=== PATIENT | male | born 1930 | race Caucasian/White ===

== ENCOUNTER 2017-03-24 15:02 | Outpatient (CLI) | payer OTHER ==
[2013-11-09 12:33] VITALS: BP 110/68
[2017-03-24 15:23] LABS: BASOPHILS % 0.6 (0.0-1.5); EOSINOPHILS % 5.1 % (0.0-6.8); MEAN CORPUSCULAR HEMOGLOBIN 34.3 pg (28.0-34.0); MEAN CORPUSCULAR VOLUME 97.6 fl (80.0-100.0); MONOCYTES % 7.1 % (0.0-11.0); NEUTROPHILS # 3.2 # k/uL (1.4-7.7)
[2017-03-24 15:54] LABS: eGFR (African) > 60; eGFR (Non-African) > 60
--- NOTE | 2017-03-24 19:14 | Diagnostic Imaging Report ---
ELIANA WHITE [facility] [address] [address] [facility] [address] [place], [place]. [address] Report Submission Date: Mar 24, 2017 3:51:30 PM CDT Patient Study Name: JEREMIAH BARRON Date: Mar 24, 2017 3:12:33 PM CDT Modality Type: CR Gender: M Description: SPINE : 34 Institution: [facility] Physician: ELIANA WHITE 3 views of the cervical spine History: Right-sided neck pain Findings: No comparison studies Bones are demineralized. There is grade I anterolisthesis of C4 on C5. Degenerative changes are seen at multiple levels of the cervical spine, these are worst at C5-6 with osteophytes, intervertebral disc space narrowing, with slight decrease in vertebral body height No prevertebral swelling, no obvious acute fracture Impression: 1. Grade I anterolisthesis of C4 on C5 2. Degenerative changes are worst at C5-6 with decrease intervertebral disc space, osteophytes, slight loss of vertebral body height and endplate erosions. Consider MR imaging Electronically signed on Mar 24, 2017 3:51:30 PM CDT by: Isis BRANDT
== END 2017-03-24 15:03 ==
LOC: RAD 15:02
PROVIDERS: ATTEND Family Medicine
DX: E03.9 Hypothyroidism, unspecified (principal); R41.3 Other amnesia; M54.2 Cervicalgia
CPT/HCPCS: 36415; 72040; 80053; 84443; 85025

== ENCOUNTER 2017-08-09 12:09 | Outpatient (CLI) | payer OTHER ==
[2013-11-09 12:33] VITALS: BP 110/68
[2017-08-09 12:29] LABS: MEAN CORPUSCULAR HEMOGLOBIN 35.3 pg (28.0-34.0); MEAN CORPUSCULAR VOLUME 101.6 fl (80.0-100.0)
[2017-08-09 12:30] LABS: APPEARANCE,URINE Clear (CLEAR); COLOR,URINE Yellow (YELLOW); OCCULT BLOOD,URINE 3+ (NEGATIVE); UROBILINOGEN URINE 0.2 Eu (0.2-1.0)
[2017-08-09 12:46] LABS: AMORPHOUS SEDIMENT,UR FEW (NEGATIVE)
[2017-08-09 12:52] LABS: eGFR (African) 57; eGFR (Non-African) 47
--- NOTE | 2017-08-09 13:10 | Diagnostic Imaging Report ---
ELIANA WHITE [facility] [address] [address] [facility] [address] [place], [place]. [address] Report Submission Date: Aug 09, 2017 1:07:25 PM [employer] Patient Study Name: JEREMIAH BARRON Date: Aug 09, 2017 12:32:02 PM [employer] Modality Type: CT\SR Gender: M Description: CT ABD & PELVIS W/O CO : 34 Institution: [facility] Physician: ELIANA WHITE Examination: CT Abdomen/pelvis History: Right flank discomfort Comparison exams: None available Technique: CT Abdomen/pelvis without contrast protocol. Findings: Renal cortical scarring. Bilateral calyceal calcifications. Left cortical cyst. 4 mm calcification within the mid right ureter with proximal dilation of the ureter and intrarenal collecting system. Significant periureteric and perinephric stranding. Remainder of the right ureter and left ureter without abnormal dilation or central calcification. Bladder margin without thickening. Lateral bladder diverticula. Liver, spleen, adrenals, gallbladder and pancreas are without gross irregularity given exam technique. Gallstone. Abdominal aorta demonstrates peripheral atherosclerotic disease. Cardiac silhouette prominent. No pericardial effusion. Bowel unopacified limiting evaluation. No mesenteric inflammatory changes or free fluid. Stool throughout the large bowel limiting sensitivity. Appendix not visualized. Right midabdomen ostomy. Scattered surgical clips. Osseous structures demonstrate degenerative changes. Lung bases demonstrate dependent atelectasis. No effusion Impression: 4 mm calcification the mid right ureter with proximal ureteric dilation - obstructive uropathy. Bilateral nephrolithiasis. Bladder diverticula. Gallstone. No abnormal bowel dilation or inflammation. Lung base parenchymal scarring without effusion. Electronically signed on Aug 09, 2017 1:07:25 PM [employer] by: Arnoldo BRANDT
== END 2017-08-09 12:10 ==
LOC: RAD 12:09
PROVIDERS: ATTEND Family Medicine
DX: R10.9 Unspecified abdominal pain (principal)
CPT/HCPCS: 36415; 74176; 80053; 81002; 85027

== ENCOUNTER 2018-05-22 10:26 | Emergency (ER) | payer OTHER ==
--- NOTE | 2018-05-22 10:40 | ED Physician Documentation ---
General Adult - HISTORIAN Historian: patient - HPI Stated Complaint: right arm pain Chief Complaint: Upper Extremity Problem Onset: days ago (14) Timing: still present Severity: moderate Further Comments: yes (He states he has had neck pain in the past but not currently. He states the pain is upper arm and down into hand when he tries to sleep. He has taken some OTC meds with mild relief. He has no recent injury. He also has for the last few weeks increased gas he has to expell out of his colostomy bag. No abdominal pain.) Last known Well Code/Unknown Code: Unknown - ROS CONST: no problems EYES/ENT: none CVS/RESP: denies: chest pain, shortness of breath GI/: denies: abdominal pain, vomiting, nausea MS/SKIN/LYMPH: denies: rash - PAST HX Past History: other (HTN, ulcerative colitis ) Surgeries/Procedures: other (colostomy ) Immunizations: UTD Allergies/Adverse Reactions: Allergies Allergy/AdvReac Type Severity Reaction Status Date / Time cephalexin monohydrate Allergy Mild hives Verified 05/22/18 10:58 [From Keflex] - SOCIAL HX Smoking History: non-smoker Alcohol Use: none Drug Use: none - FAMILY HX Family History: No - VITAL SIGNS Vital Signs: Vital Signs Temp Pulse Resp BP Pulse Ox 110/68 11/09/13 12:25 - REVIEWED ASSESSMENTS Nursing Assessment Reviewed: Yes Vitals Reviewed: Yes Progress - Progress Progress: 1155: results and plan discussed. The are agreeable DG ED Results Lab/Radiology - Radiology Radiology Impressions: Right upper extremity History: Unbearable pain when lying on his right side A total of four views of the right humerus were obtained which demonstrate mild degenerative narrowing of the glenohumeral joint. The AC joint is intact with minor hypertrophic findings. No acute osseous abnormalities are noted. The remainder of the humerus is unremarkable. Impression: Mild degenerative findings of the glenohumeral joint. Otherwise, no significant osseous abnormality. Electronically signed on May 22, 2018 11:35:46 AM CDT by: June Catherine General Adult Physical Exam - PHYSICAL EXAM GENERAL APPEARANCE: no distress EENT: eye inspection normal NECK: normal inspection RESPIRATORY: no resp distress, chest non-tender, breath sounds normal CVS: reg rate & rhythm, heart sounds normal ABDOMEN: soft, normal bowel sounds, no distension SKIN: warm/dry, normal color EXTREMITIES: non-tender, normal range of motion, no evidence of injury, no edema, tenderness (mild in right upper arm with deep palpation/ No change in ROM. Pulses + Strength = on both sides. No evidence of injury. Neck FROM no pain ) NEURO: oriented X3 Discharge Clincal Impression: Right arm pain Referrals: Fiona Canchola MD [Primary Care Provider] - 2 Days Comments: 1. Medrol dose pain 2. PT for arm pain 3. Ibuprofen /Tylenol as directed OTC for pain 4. See PCP for any further concerns 5. Return to ER for any further issues Condition: Stable Disposition: 01 HOME, SELF-CARE Decision to Admit: NO Date of Decison to Admit: 05/22/18 Decision Time: 11:58
[2018-05-22 12:04] VITALS: BP 92/68
--- NOTE | 2018-05-22 13:56 | Diagnostic Imaging Report ---
ENEDINA SIMON [facility] [address] [facility] [address] [address] Report Submission Date: May 22, 2018 11:35:46 AM CDT Patient Study Name: JEREMIAH BARRON Date: May 22, 2018 11:11:13 AM CDT Modality Type: DX Gender: M Description: UPPER EXTREMITY : 34 Institution: [facility] Physician: ENEDINA SIMON Right upper extremity History: Unbearable pain when lying on his right side A total of four views of the right humerus were obtained which demonstrate mild degenerative narrowing of the glenohumeral joint. The AC joint is intact with minor hypertrophic findings. No acute osseous abnormalities are noted. The remainder of the humerus is unremarkable. Impression: Mild degenerative findings of the glenohumeral joint. Otherwise, no significant osseous abnormality. Electronically signed on May 22, 2018 11:35:46 AM CDT by: June BRANDT
== END 2018-05-22 12:02 | disposition home or self-care (01) ==
LOC: ED 10:26
DX: M79.601 Pain in right arm (principal)
CPT/HCPCS: 73060; 99283